=== PATIENT | female | born 2000 | race Caucasian/White ===

== ENCOUNTER 2020-09-10 16:00 | Emergency (ER) | payer OTHER ==
[~2020-09-10] VITALS: Ht 172.7 cm; Wt 55.3 kg
[2020-09-10] MEDS ORDERED: Prednisone20 MG PO (19:54)
== END 2020-09-10 20:00 | disposition home or self-care (01) ==
LOC: ER 16:00
DX: T63.441A Toxic effect of venom of bees, accidental (unintentional), initial encounter (principal); M25.471 Effusion, right ankle
CPT/HCPCS: 99283; J7512